=== PATIENT | male | born 1940 | race Two or more races ===

== ENCOUNTER 2020-02-23 19:23 | Inpatient (IN) | payer MEDICARE, MEDICAID ==
[~2020-02-23] VITALS: Ht 149.9 cm; Wt 65.6 kg
--- NOTE | 2020-02-23 21:50 | NUR ---
Direct Admit Note ANDRE AHMADI admitted to Telemetry/MS unit as a direct admit per MD order. Patient oriented to SHONA LIVINGSTON, RN primary RN, unit, room, bed, and unit policies regarding patient care and visiting hours. Patient now on continuous telemetry monitoring, tele box #65 and telemetry reading on arrival to unit is NSR 73. Patient placed on bedside oxygen 2L, weighed by bedscale and encouraged to call if they need something. All questions and concerns addressed, patient verbalized understanding. MD notified of patients arrival and admit orders received.
[2020-02-23 22:30] VITALS: BP 133/69
[2020-02-23] MEDS ORDERED: HEPARIN DRIP/D5W 100UNITS/ML 250 ML IV SCH (22:45)
[2020-02-23] MEDS ORDERED: HYDROcodone-ACET 5/325MG TAB PO PRN (22:45)
[2020-02-23] MEDS ORDERED: HEPARIN SODIUM (PORCINE) 5000 UNITS/ML 1ML VIAL IV ONE (22:45)
[2020-02-23] MEDS ORDERED: ONDANSETRON HCL 4 MG/2 ML VIAL IV PRN (22:45)
[2020-02-23] MEDS ORDERED: DEXTROSE (50%) 50ML SYRG IV PRN (22:45)
[2020-02-23] MEDS ORDERED: SIMV-13 PO (22:55)
[2020-02-23] MEDS ORDERED: LOS25T PO (22:55)
[2020-02-23] MEDS ORDERED: BRIM0.2S17 EACHEYE (22:55)
[2020-02-23] MEDS ORDERED: ATORVASTATIN 20 MG TAB PO SCH (23:00)
[2020-02-23 23:40] VITALS: BP 133/69
[2020-02-23 23:44] LABS: Basophils # (auto) 0.1 10 ^3/uL (0-0.2); Basophils % (auto) 0.7 % (0.0-2.0); Eosinophils # (auto) 0.1 10 ^3/uL (0-0.8); Eosinophils % (auto) 0.5 % (0.0-7.0); Hematocrit 47.3 % (41.0-53.0); Hemoglobin 15.8 g/dL (13.5-17.5); Lymphocytes # (auto) 1.4 10 ^3/uL (0.4-5.4); Lymphocytes % (auto) 14.5 % (10.0-50.0); Mean Corpuscular Hemoglobin 30.5 pg (28.0-32.0); Mean Corpuscular Hgb Conc. 33.4 g/dL (32.0-36.0); Mean Corpuscular Volume 91.3 fL (80.0-100.0); Monocytes # (auto) 0.8 10 ^3/uL (0-1.3); Monocytes % (auto) 8.2 % (0.0-12.0); Neutrophils # (auto) 7.5 10 ^3/uL (1.6-8.6); Neutrophils % (auto) 76.1 % (37.0-80.0); Nucleated Red Blood Cells % 0.1 %; Platelet Count (auto) 196 10^3/uL (140-450); Red Blood Cells 5.18 10^6/uL (4.5-5.90); Red Cell Distribution Width 14.4 % (11.8-14.3); White Blood Cell 9.8 10^3/uL (4.4-10.8)
[2020-02-23 23:45] LABS: INR 0.97 (0.9-1.15); Partial Thromboplastin Time 25.5 sec (23.0-31.2)
[2020-02-23 23:51] LABS: Calcium 8.9 mg/dL (8.5-10.1); Potassium 4.2 mmol/L (3.5-5.1)
[2020-02-23 23:53] LABS: BUN/Creatinine Ratio 9.9
[2020-02-24] MEDS: ASPirin 81 mg TAB PO SCH ×2 (00:36→10:00)
--- NOTE | 2020-02-24 00:45 | NUR ---
Called/paged Dr. Webster called re: Trop 44.9 . Waiting for call back. Pt resting comfortably in bed, reporting no pain. Will continue care.
[2020-02-24 05:00] VITALS: BP 106/62
[2020-02-24] MEDS ORDERED: BRIMONIDINE 0.2% OPTH Soln 5ml EACHEYE SCH (06:00)
[2020-02-24] MEDS: InsuLIN REG 1unit/0.01ml Soln (100units/ml) SC SCH ×3 (06:50→17:00)
[2020-02-24] MEDS: ACCU-CHEK COMFORT CURVE STRIP VI SCH ×3 (06:50→17:00)
--- NOTE | 2020-02-24 07:35 | NUR ---
Opening Note Received report from overnight stocker RN. Patient is awake, alert and oriented x4. No signs or symptoms of distress noted at this time. Patient denies pain or shortness of breath. Reviewed plan of care with patient, patient verbalized understanding. Bed in low and locked position, call light within reach. Will continue to monitor Q1 hour and PRN.
[2020-02-24 09:00] VITALS: BP 103/65
--- NOTE | 2020-02-24 09:05 | NUR ---
Spoke to Dr. Duenas Patient is to be in cleaning laborer for procedure, informed MD that patient is on Heparin drip. states to continue patient on Heparin until he goes down for procedure. Will notify cleaning laborer.
[2020-02-24 09:07] LABS: Basophils # (auto) 0.1 10 ^3/uL (0-0.2); Basophils % (auto) 0.6 % (0.0-2.0); Eosinophils # (auto) 0 10 ^3/uL (0-0.8); Eosinophils % (auto) 0.5 % (0.0-7.0); Hematocrit 47.3 % (41.0-53.0); Hemoglobin 15.3 g/dL (13.5-17.5); Lymphocytes # (auto) 1.7 10 ^3/uL (0.4-5.4); Lymphocytes % (auto) 18.7 % (10.0-50.0); Mean Corpuscular Hemoglobin 29.8 pg (28.0-32.0); Mean Corpuscular Hgb Conc. 32.3 g/dL (32.0-36.0); Mean Corpuscular Volume 92.2 fL (80.0-100.0); Monocytes # (auto) 1.1 10 ^3/uL (0-1.3); Monocytes % (auto) 12.8 % (0.0-12.0); Neutrophils % (auto) 67.4 % (37.0-80.0); Nucleated Red Blood Cells % 0.1 %; Platelet Count (auto) 183 10^3/uL (140-450); Red Blood Cells 5.13 10^6/uL (4.5-5.90); Red Cell Distribution Width 14.3 % (11.8-14.3); White Blood Cell 8.9 10^3/uL (4.4-10.8)
[2020-02-24 09:23] LABS: Partial Thromboplastin Time 39.9 sec (23.0-31.2)
--- NOTE | 2020-02-24 09:31 | NUR ---
Patient taken down to poultry hatchery laborer
[2020-02-24] MEDS ORDERED: LOSARTAN POTASSIUM 25 MG TAB PO SCH (10:00)
[2020-02-24] MEDS ORDERED: HEPARIN SODIUM (PORCINE) 5000 UNITS/ML 1ML VIAL ONE (10:04)
[2020-02-24] MEDS ORDERED: ANGIOMAX 250 MG VIAL IV ONE (10:04)
[2020-02-24] MEDS ORDERED: MIDAZOLAM HCL 1MG/1ML-2 ML VIAL ONE (10:05)
[2020-02-24] MEDS ORDERED: VERAPAMIL 2.5MG/ML INJ 2ML VIAL IV ONE (10:05)
[2020-02-24] MEDS ORDERED: fentaNYL CITRATE 100 MCG/2 ML VL ONE (10:05)
[2020-02-24] MEDS ORDERED: LIDOCAINE 2%HCL (LOCAL ANESTH.) INJ 20ML MDV ONE (10:05)
[2020-02-24] MEDS ORDERED: SODIUM CHL 0.9% 0 ML ONE (10:05)
[2020-02-24] MEDS ORDERED: SODIUM CHL 0.9% 50 ML ONE (10:17)
[2020-02-24] MEDS ORDERED: HEPARIN SODIUM (PORCINE) 5000 UNITS/ML 1ML VIAL IV ONE (11:45)
[2020-02-24] MEDS ORDERED: ENOXAPARIN SOD 80 MG/0.8ML SYRINGE SC SCH (11:52)
[2020-02-24] MEDS ORDERED: HEPARIN DRIP/D5W 100UNITS/ML 250 ML IV SCH (12:00)
--- NOTE | 2020-02-24 12:05 | NUR ---
Patient back from laborer shaft sinking Patient is s/p left heart cath. Patient has vasc band to right wrist, no signs of bleeding or hematoma at this time. Patient denies pain at this time. Reviewed plan of care with patient, patient verbalized understanding. Bed in low and locked position, call light within reach. Will continue to monitor Q1 hour and PRN.
--- NOTE | 2020-02-24 12:27 | NUR ---
1227 02/24/20 - Faxed to [facility] transfer center at [phone] face sheet, order to transfer to [facility] (Dr Geraldo Walsh), labs, meds,consult, [facility] results. Pending review and bed availability. Addendum: 02/24/20 at 1336 by Marisa Shabazz RN 1300 02/24/20 - Contacted [facility] transfer center and [facility] transfer center and was informed currently no bed availability
[2020-02-24 13:00] VITALS: BP 104/54
--- NOTE | 2020-02-24 14:29 | NUR ---
1400 02/23/20 Received a call from [facility] transfer center coordinator Stella who provided assigned bed 229 and report can be called to [phone], accepting physician is Dr Geraldo Walsh. Patient placed on [facility] "will call" list. All imaging to accompany patient. All info stated above provided to nurse Sky.
--- NOTE | 2020-02-24 16:30 | NUR ---
Call to [facility] Scheduled clam picker time for 1829. Patient updated to plan of care. Will continue to monitor Q1 hour and PRN.
--- NOTE | 2020-02-24 16:58 | NUR ---
BEDSIDE SIPRO COMPLETED BY RT. RESULTS AVAILABLE IN HARD CHART. RN MADE AWARE.
[2020-02-24 17:08] VITALS: BP 135/71
--- NOTE | 2020-02-24 18:12 | NUR ---
TRANSFER Patient trasferred to [facility]. Report called to Yolanda DALY , all questions and concerns addressed. This RN called and updated patients daughter Valentino . Patient transferred by [facility] with all personal belongings. keyboard operator removed and sent back to ICU. Patient transferred with IV catheter in place. No signs or symptoms of distress noted at this time.
== END 2020-02-24 18:15 | disposition short-term general hospital (02) | DRG 282 ==
LOC: TELE-WESTW 21:52
PROVIDERS: ADMIT Specialist; ATTEND Specialist
PROC: 4A023N7 Measurement of Cardiac Sampling and Pressure, Left Heart, Percutaneous Approach (ICD-10-PCS; principal; 2020-02-24)
PROC: B2111ZZ Fluoroscopy of Multiple Coronary Arteries using Low Osmolar Contrast (ICD-10-PCS; 2020-02-24)
PROC: B2151ZZ Fluoroscopy of Left Heart using Low Osmolar Contrast (ICD-10-PCS; 2020-02-24)
DX: I21.4 Non-ST elevation (NSTEMI) myocardial infarction (principal); E78.5 Hyperlipidemia, unspecified; I25.10 Atherosclerotic heart disease of native coronary artery without angina pectoris; E11.40 Type 2 diabetes mellitus with diabetic neuropathy, unspecified; Z85.46 Personal history of malignant neoplasm of prostate; Z87.891 Personal history of nicotine dependence; Z79.899 Other long term (current) drug therapy; Z79.82 Long term (current) use of aspirin; Z79.84 Long term (current) use of oral hypoglycemic drugs; Z79.4 Long term (current) use of insulin; Z90.79 Acquired absence of other genital organ(s)
CPT/HCPCS: 36415; 80048; 82962; 84484; 85025; 85610; 85730; 93458; 94010; 99152; G0378; J1642; J1815; J2250

== ENCOUNTER 2025-01-14 15:26 | Inpatient (IN) | payer MEDICARE, MEDICAID ==
[~2025-01-14] VITALS: Ht 149.9 cm; Wt 54.6 kg
[~2025-01-14 15:26] MED LIST: BRIM0.2S17 EACHEYE; LOS25T PO; SIMV40TA18 PO
[2025-01-14 15:42] VITALS: PULSE 63; RESP 12; O2SAT 93
--- NOTE | 2025-01-14 15:54 | ED.PDOC ---
History of Present Illness HPI Comments 84-year-old male brought in by EMS from [facility] [place] presents with a chief complaint of chest pain and NSTEMI. Patient reports that his chest pain began last night around 2100 and thought it was simple indigestion. Patient reports that the sensation never went away which is why he sought out an evaluation at [facility]. Patient was found to have elevated troponin levels at [facility] and was transferred here for higher level of care. Patient states that his pain is localized to his sternal region, nonradiating, describes as indigestion feeling. Chief Complaint: Chest Pain Time Seen by MD: 15:49 Reviewed Notes: Medications, Allergies Allergies: Coded Allergies: No Known Drug Allergy (Verified Allergy, Unknown, 02/23/20) Home Meds Reported Medications Brimonidine Tartrate (Brimonidine Tartrate) 0.2 % Yodit, 1 DROP EACHEYE TID 02/23/20 Simvastatin (Simvastatin) 40 Mg Tab, 1 TAB PO HS 02/23/20 Losartan Potassium (Losartan Potassium) 25 Mg Tab, 1 TAB PO DAILY 02/23/20 Information Source: Patient, Emergency Med Personnel Mode of Arrival: EMS Severity: Moderate Timing: Hours Duration: Since onset Prehospital treatment: None Past Medical History PAST MEDICAL HISTORY: DM, High Lipids, HTN Family History Family History: Reviewed,noncontributory to illness Social History Smoker: Non-Smoker Alcohol: Denies ETOH Use Drugs: Denies Drug Use Lives In: Home Constitutional: denies: chills, diaphoresis, fatigue, fever, malaise, sweats, weakness, others EENTM: denies: blurred vision, double vision, ear bleeding, ear discharge, ear drainage, ear pain, ear ringing, eye pain, eye redness, hearing loss, mouth pain, mouth swelling, nasal discharge, nose bleeding, nose congestion, nose pain, photophobia, tearing, throat pain, throat swelling, voice changes, others Respiratory: denies: cough, hemoptysis, orthopnea, SOB at rest, shortness of breath, SOB with excertion, stridor, wheezing, others Cardiovascular: reports: chest pain; denies: dizzy spells, diaphoresis, Dyspnea on exertion, edema, irregular heart beat, left arm pain, lightheadedness, palpitations, PND, syncope, others Gastrointestinal: denies: abdomen distended, abdominal pain, blood streaked bowels, constipated, diarrhea, dysphagia, difficulty swallowing, hematemesis, melena, nausea, poor appetite, poor fluid intake, rectal bleeding, rectal pain, vomiting, others Genitourinary: denies: burning, dysuria, flank pain, frequency, hematuria, incontinence, penile discharge, penile sore, pain, testicle pain, testicle swelling, urgency, others Neurological: denies: dizziness, fainting, headache, left sided numbness, left sided weakness, numbness, paresthesia, pre-existing deficit, right sided numbness, right sided weakness, seizure, speech problems, tingling, tremors, wea kness, others Musculoskeletal: denies: back pain, gout, joint pain, joint swelling, muscle pain, muscle stiffness, neck pain, others Integumetry: denies: bruises, change in color, change in hair/nails, dryness, l aceration, lesions, lumps, rash, wounds, others Allergic/Immunocompromised: denies: Difficulty Healing, Frequent Infections, Hives, Itching, others Hematologic/Lymphatic: denies: anemia, blood clots, easy bleeding, easy bruising, swollen glands, others Endocrine: denies: excessive hunger, excessive sweating, excessive thirst, excessive urination, flushing, intolerance to cold, intolerance to heat, unexplained weight gain, unexplained weight loss, others Psychiatric: denies: anxiety, bipolar disorder, depression, hopeless, panic disorder, schizophrenia, sleepless, suicidal, others All Other Systems: Reviewed and Negative Physical Exam General Appearance: No Apparent Distress, Normal HEENT: Normal ENT Inspection, Pharynx Normal, TMs Normal Neck: Full Range of Motion, Non-Tender, Normal, Normal Inspection Respiratory: Chest Non-Tender, Lungs Clear, No Accessory Muscle Use, No Respiratory Distress, Normal Breath Sounds Cardiovascular: No Edema, No JVD, No Murmur, No Gallop, Normal Peripheral Pulses, Regular Rate/Rhythm Breast Exam: Deferred Gastrointestinal: No Organomegaly, Non Tender, No Pulsatile Mass, Normal Bowel Sounds, Soft Genitalia: Deferred Pelvic: Deferred Rectal: Deferred Extremities: No calf tenderness, Normal capillary refill, Normal inspection, Normal range of motion, Non-tender, No pedal edema Musculoskeletal : Apperance: Normal Neurologic: Alert, top lift compressor II-XII nml as Tested, No Motor Deficits, Normal Affect, Normal Mood, No Sensory Deficits Cerebellar Function: Normal Reflexes: Normal Skin: Dry, Normal Color, Warm Lymphatic: No Adenopathy Was a procedure done? Was a procedure done?: No EKG EKG : Pulse Rate (adult): 58 [place]: Normal Cardiac Rhythm: SB Block: RBBB Hypertrophy: LVH ST: Normal Differential Dx Considerations may include: Differential diagnosis including NSTEMI, STEMI, CHF, PE, chest wall pain, GERD symptoms, aortic dissection, pneumothorax, pneumonia. Patient does have a cardiac history and his troponin is elevated without EKG changes patient has NSTEMI he will be admitted to ICU cardiology will be consulted Due to concerns for patients condition deteriorating, the care required my highest level of attention and readiness to intervene. I assessed the patient, reviewed the medical records, ordered the appropriate tests and treatments, then reassessed for results and responsiveness. I communicated with medical personnel and consultants and formulated a plan of care. Total critical care time excludes any procedures X-Ray, Labs, Meds, VS Vital Signs Date Time Temp Pulse Resp B/P (MAP) Pulse Ox O2 Delivery O2 Flow Rate FiO2 01/14/25 16:35 57 01/14/25 15:54 58 01/14/25 15:45 58 01/14/25 15:42 63 12 93 Nasal Cannula* 2 28 01/14/25 15:42 63 12 93/45 (61) 93 01/14/25 15:26 98.7 62 16 103/49 96 98.7 Lab Test 01/14/25 16:54 01/14/25 15:50 Range/Units Sodium Level 138 136-145 mmol/L Potassium Level 4.4 3.5-5.1 mmol/L Chloride Level 104 98-107 mmol/L Carbon Dioxide Level 25 20-31 mmol/L Anion Gap 9 5-15 Blood Urea Nitrogen 13 9-23 mg/dL Creatinine 1.58 H 0.700-1.30 mg/dL Glomerular Filtration Rate Calc 42 >90 mL/min BUN/Creatinine Ratio 8.2 L 10.0-20.0 Serum Glucose 103 74-106 mg/dL Calcium Level 9.1 8.7-10.4 mg/dL Troponin I High Sensitivity 38569 *H 44933 *H </=54 ng/L White Blood Count 10.6 4.4-10.8 10^3/uL Red Blood Count 4.90 4.5-5.90 10^6/uL Hemoglobin 14.9 13.5-17.5 g/dL Hematocrit 44.7 41.0-53.0 % Mean Corpuscular Volume 91.4 80.0-100.0 fL Mean Corpuscular Hemoglobin 30.4 28.0-32.0 pg Mean Corpuscular Hemoglobin Concent 33.3 32.0-36.0 g/dL Red Cell Distribution Width 15.2 H 11.8-14.3 % Platelet Count 199 140-450 10^3/uL Mean Platelet Volume 10.9 H 6.9-10.8 fL Neutrophils (%) (Auto) 72.5 37.0-80.0 % Lymphocytes (%) (Auto) 16.1 10.0-50.0 % Monocytes (%) (Auto) 10.9 0.0-12.0 % Eosinophils (%) (Auto) 0.1 0.0-7.0 % Basophils (%) (Auto) 0.4 0.0-2.0 % Neutrophils # (Auto) 7.7 1.6-8.6 10 ^3/uL Lymphocytes # (Auto) 1.7 0.4-5.4 10 ^3/uL Monocytes # (Auto) 1.2 0-1.3 10 ^3/uL Eosinophils # (Auto) 0 0-0.8 10 ^3/uL Basophils # (Auto) 0 0-0.2 10 ^3/uL Nucleated Red Blood Cells 0.1 % Time of 1ST Reevaluation: 16:20 Reevaluation 1ST: Unchanged Patient Education/Counseling: Diagnosis, Treatment, Need For Follow Up Family Education/Counseling: No Family Present SEPSIS Sepsis Screen Date sepsis recognized/suspect: Jan 14, 2025 Time Sepsis recognized/suspect: 1526 Recent Procedure: No On Antibiotic Therapy: No Respiratory Rate >20: No Heart Rate >90: No Temp<36 C (96.8 F) or >38.3 C: No SBP <90 or MAP <65 mmHG: No New Acute Mental Status Change: No Is the patient on CPAP, BIPAP,: No Physician Orders Electrocardigram (01/14/25 15:31) Troponin-I Hs (01/14/25 18:31) Electrocardigram (01/14/25 16:31) Chest Xray 1 View (01/14/25 15:48) Continuous Ekg Monitoring 08,12,16,20,00,04 (01/14/25 15:48) Platelet Monitoring (01/14/25 17:06) Heparin Per Standardized Proce (01/14/25 17:06) Discontinue All Im Injections (01/14/25 17:06) Heparin Drip/D5w 100units/Ml (01/14/25 17:15) PTPTT (01/14/25 18:05) Vital Signs Date Time Temp Pulse Resp B/P (MAP) Pulse Ox O2 Delivery O2 Flow Rate FiO2 01/14/25 16:35 57 01/14/25 15:54 58 01/14/25 15:45 58 01/14/25 15:42 63 12 93 Nasal Cannula* 2 28 01/14/25 15:42 63 12 93/45 (61) 93 01/14/25 15:26 98.7 62 16 103/49 96 98.7 Laboratory Tests Test 01/14/25 15:50 White Blood Count 10.6 10^3/uL (4.4-10.8) Departure 1 Departure Time of Disposition: 18:10 Impression: Primary Impression: ACS (acute coronary syndrome) Additional Impression: Renal insufficiency Disposition: ADMITTED INPATIENT Admit to: ICU Condition: Critical Discharged With: Self Critical Care Note Critical Care Time?: Yes (45 min-critical care time only) Critical care comment: Due to concerns for patients condition deteriorating, the care required my highest level of attention and readiness to intervene. I assessed the patient, reviewed the medical records, ordered the appropriate tests and treatments, then reassessed for results and responsiveness. I communicated with medical personnel and consultants and formulated a plan of care. Total critical care time excludes any procedures Stability Stability form required: No Heart Score Heart Score: Heart Score Response (Comments) Value History Highly Suspicious 2 EKG Repolarization Disturb 1 Age >65 2 Risk Factors >3 or Hx ASHD 2 Troponin >3 x's Normal limit 2 Total 9 I personally scribed for SUMI HOUSE MD ([email or web address]) on 01/14/25 at 15:54. Electronically submitted by Lars Salazar [email or web address]). SUMI HOUSE MD Jan 14, 2025 15:54
--- NOTE | 2025-01-14 16:28 | DVH ---
CHEST RADIOGRAPH Indication: cp Technique: Single frontal view of the chest was obtained Comparison: None FINDINGS: Lines and Tubes: None Lungs: No focal consolidation. Pleura: No effusion. No pneumothorax. Cardiomediastinal contours: Unremarkable Postsurgical changes of Midline sternotomy surgical clips are noted consistent with prior history of CABG. Bones: No acute osseous abnormality. IMPRESSION: No acute cardiopulmonary disease.
[2025-01-14 16:53] LABS: Hematocrit 44.7 % (41.0-53.0); Hemoglobin 14.9 g/dL (13.5-17.5); Mean Corpuscular Hemoglobin 30.4 pg (28.0-32.0); Mean Corpuscular Volume 91.4 fL (80.0-100.0); Nucleated Red Blood Cells % 0.1 %
[2025-01-14 17:37] LABS: Chloride 104 mmol/L (98-107); Potassium 4.4 mmol/L (3.5-5.1); Sodium 138 mmol/L (136-145)
[2025-01-14 17:38] LABS: Anion Gap 9 (5-15); Calcium 9.1 mg/dL (8.7-10.4); Carbon Dioxide 25 mmol/L (20-31)
[2025-01-14 17:43] LABS: BUN/Creatinine Ratio 8.2 (10.0-20.0); Blood Urea Nitrogen 13 mg/dL (9-23); Glucose 103 mg/dL (74-106)
--- NOTE | 2025-01-14 18:35 | ECG ---
[facility] Test Date: 2025-01-14 Test Time: 15:40:06 Pat Name: ANDRE AHMADI Department: [facility] ED Patient ID: [id number] Room: [address] [place] [address] Gender: M Bar Staff: ALIA : 1940 Requested By: SUMI HOUSE Order Number: [id number] Reading MD: Saleem Maya Measurements Intervals [place] Rate: 58 P: 73 FL: 182 QRS: 107 QRSD: 153 T: 263 QT: 412 QTc: 405 Interpretive Statements Sinus rhythm RBBB and LPFB Baseline wander in lead(s) V3,V4,V5,V6 Electronically Signed On 01-14-2025 22:36:24 PDT by Saleem Maya Please click the below link to view image of tracing.
--- NOTE | 2025-01-14 18:35 | ECG ---
[facility] Test Date: 2025-01-14 Test Time: 16:33:09 Pat Name: ANDRE AHMADI Department: [facility] ED Patient ID: [facility]-[id number] Room: [address] [place] [address] Gender: M Furniture Finisher: ALIA : 1940 Requested By: SUMI HOUSE Order Number: [id number] Reading MD: Saleem Maya Measurements Intervals [place] Rate: 57 P: 59 [place]: 184 QRS: 133 QRSD: 149 T: 253 QT: 428 QTc: 417 Interpretive Statements Sinus rhythm Atrial premature complex RBBB and LPFB Electronically Signed On 01-14-2025 22:37:21 PDT by Saleem Maya Please click the below link to view image of tracing.
[2025-01-14 18:41] LABS: INR 1.05 (0.9-1.15); Partial Thromboplastin Time 45.7 SEC (24.5-34.5); Prothrombin Time 11.1 sec (9.3-11.8)
--- NOTE | 2025-01-14 18:59 | DVHHP2 ---
Admitting Diagnosis: chest pain History of Present Illness 84 year old male brought in from [facility] is brought in for chest pain and NSTEMI. Patient states chest pain started at 2100. He was found to have elevated troponin levels at [facility] and was transferred for higher level of care. While in the emergency department the patient was evaluated by the provider. Patient will be admitted for further evaluation and treatment. I discussed admission with the patient/family and is in agreement to treatment plan. Allergies: Coded Allergies: No Known Drug Allergy (Verified Allergy, Unknown, 02/23/20) Home Meds Reported Medications Albuterol Sulfate (Albuterol Sulfate Hfa) Unknown Strength Aer, 80 MCG IN PRN for SOB, AER 01/15/25 Empagliflozin (Jardiance) 10 Mg Tab, 1 TAB PO DAILY 01/15/25 Furosemide (Furosemide) 20 Mg Tab, TAB PO 01/15/25 Latanoprost (LATANOPROST) 0.005 % Yodit, EACHEYE 01/15/25 Sacubitril-Valsartan (Entresto 24-26 mg) 1 Tab Tab, 1 TAB PO BID 01/15/25 Aspirin (Aspirin) 81 Mg Chw, 1 TAB PO DAILY 01/15/25 Carvedilol (Carvedilol) 3.125 Mg Tab, 1 TAB PO BID 01/15/25 Atorvastatin Calcium (ATORVASTATIN CALCIUM) 80 Mg Tab, 1 TAB PO DAILY 01/15/25 Brimonidine Tartrate (Brimonidine Tartrate) 0.2 % Yodit, 1 DROP EACHEYE TID 02/23/20 Simvastatin (Simvastatin) 40 Mg Tab, 1 TAB PO HS 02/23/20 Losartan Potassium (Losartan Potassium) 25 Mg Tab, 1 TAB PO DAILY 02/23/20 Discontinued Reported Medications Albuterol Sulfate (Albuterol Sulfate) 2 Mg Tab, 90 MCG INH PRN for SHORTNESS OF BREATH, MG 01/15/25 Current Medications Current Medications Medications (Trade) Dose Ordered Sig/Liberty Route PRN Reason Start Time Stop Time Status Last Admin Aspirin 81 mg DAILY PO 01/15/25 10:00 01/15/25 10:23 Brimonidine Tartrate (ALPHAGAN 0.2% OPTH Soln) 1 drop BID EACHEYE 01/15/25 14:00 01/15/25 20:24 Carvedilol (Coreg Tablet) 3.125 mg BID PO 01/16/25 10:00 Empaglifozin (Jardiance) 10 mg DAILY PO 01/16/25 10:00 Latanoprost (Xalatan) 1 drop DAILY EACHEYE 01/15/25 10:00 01/15/25 11:38 Sacubitril/ Valsartan (Entresto 24-26 Mg tab) 1 tab BID PO 01/16/25 10:00 Diagnostic Test (Pha) (Accu-Chek Comfort Curve T) 1 strip ACHS 01/15/25 11:30 01/15/25 20:24 Insulin Human Regular (InsuLIN R) ACHS SC 01/15/25 11:30 Dextrose 50 ml UD PRN IV Blood Sugar LESS THAN 60 01/15/25 09:45 Heparin Sodium/ Dextrose 250 ml @ 5 mls/hr Q24H IV 01/15/25 13:45 01/15/25 15:14 DC Clopidogrel Bisulfate (Plavix) 75 mg DAILY PO 01/16/25 10:00 Review of Systems chest pain Vital Signs Vital Signs Date Time Temp Pulse Resp B/P (MAP) Pulse Ox O2 Delivery O2 Flow Rate FiO2 01/15/25 20:00 73 29 115/37 (63) 100 01/15/25 18:30 98.4 98.4 01/15/25 18:00 Nasal Cannula* 2 28 Physical Exam General Appearance: alert, no distress HEENT: EOMI, PERRLA, normal external inspect of ears, no icterus, no nasal drainage Neck: no carotid bruit, no jugular venous distention (JVD), no lymphadenopathy Chest: normal thorax Respiratory: clear to auscultation, normal air movement Cardiovascular: regular rate and rhythm, no diastolic murmur, no jugular venous distention (JVD), no rub, no systolic murmur Abdominal: soft, no hepatomegaly, no mass, no splenomegaly, no tenderness Musculoskeletal: no joint tenderness, no swelling Extremities: normal pulses, no calf tenderness, no clubbing, no cyanosis, no edema Skin: no bruising, no jaundice, no rash Neurological: alert, No focal deficit SEPSIS Sepsis Screen Date sepsis recognized/suspect: Jan 14, 2025 Time Sepsis recognized/suspect: 1525 Recent Procedure: No On Antibiotic Therapy: No Respiratory Rate >20: No Heart Rate >90: No Temp<36 C (96.8 F) or >38.3 C: No SBP <90 or MAP <65 mmHG: No New Acute Mental Status Change: No Is the patient on CPAP, BIPAP,: No Physician Orders Electrocardigram (01/14/25 15:31) Electrocardigram (01/14/25 16:31) Chest Xray 1 View (01/14/25 15:48) Platelet Monitoring (01/14/25 17:06) Discontinue All Im Injections (01/14/25 17:06) * Cardiology Consult (01/14/25 18:13) Admit (01/14/25 18:52) Code Status (01/14/25 18:52) Sodium Chloride 0.9% (01/14/25 19:00) Oxygen Per Hour (01/14/25 18:52) Hydrocodone-Acet 5/325mg Tab ([place] 5/32 (01/14/25 19:00) Temazepam (Restoril) (01/14/25 19:00) Ondansetron Hcl (Zofran) (01/14/25 19:00) Condition: Critical (01/14/25 18:52) Morphine Sulfate Injection (01/14/25 19:00) Sequential Compression Device (01/14/25 ) Nitroglycerin Sublingual (Ntrostat Subli (01/14/25 19:00) Morphine Sulfate Injection (01/14/25 19:00) Stat Ekg For Chest Pain (01/14/25 18:52) Notify Md Of Changes From Base (01/14/25 18:52) Optical Effects Camera Operator For 24 Hours (01/14/25 18:52) Emergency Dysrhythmia Protocol (01/14/25 18:52) Rhythm Strips Once Every Shift (01/14/25 18:52) Oxygen By Nasal Cannula (01/14/25 18:52) *Consult Dr. Webster (01/14/25 18:54) *Consult Dr. Madison (01/14/25 18:54) Pantoprazole (Protonix) (01/14/25 19:00) Atorvastatin (Lipitor) (01/14/25 19:00) Heparin Per Standardized Proce (01/15/25 02:53) Aspirin Tablet (01/15/25 10:00) Cl Left Heart Cath (01/15/25 07:43) Complete Blood Count (01/16/25 05:00) Heparin Per Pharmacy Protocol (01/15/25 08:41) Brimonidine 0.2% Opth Soln (Alphagan 0.2 (01/15/25 14:00) Carvedilol Tablet (Coreg Tablet) (01/16/25 10:00) Empagliflozin (Jardiance) (01/16/25 10:00) Latanoprost (Xalatan) (01/15/25 10:00) Sacubitril-Valsartan (Entresto 24-26 Mg (01/16/25 10:00) Glucose Blood (Accu-Chek Comfort Curve T (01/15/25 11:30) Insulin R (Human) (Insulin R) (01/15/25 11:30) Dextrose 50% Syringe (01/15/25 09:45) Heparin Per Pharmacy Protocol (01/15/25 13:21) Post Cath Vital Signs Q 15min (01/15/25 15:12) Post Cath Activity Protocol (01/15/25 15:12) Clopidogrel Bisulfate (Plavix) (01/16/25 10:00) Cardiac Diet-2gna,Lofat,Lochol (01/15/25 Dinner) Sodium Chloride 0.9% (01/15/25 21:00) Vital Signs Date Time Temp Pulse Resp B/P (MAP) Pulse Ox O2 Delivery O2 Flow Rate FiO2 01/15/25 20:00 73 29 115/37 (63) 100 01/15/25 19:30 76 17 108/34 (58) 100 01/15/25 19:00 67 22 83/30 (47) 100 01/15/25 18:30 98.4 90 18 96/42 (60) 100 98.4 01/15/25 18:00 70 22 83/48 (60) 98 01/15/25 18:00 83 01/15/25 18:00 22 98 Nasal Cannula* 2 28 01/15/25 17:31 74 22 87/45 (59) 100 01/15/25 17:00 82 22 113/50 (71) 100 01/15/25 16:30 88 36 128/66 (86) 97 01/15/25 16:00 25 100 Nasal Cannula* 2 28 01/15/25 16:00 83 25 134/75 (94) 100 01/15/25 16:00 82 01/15/25 15:30 74 100 01/15/25 14:01 79 25 89/35 (53) 100 01/15/25 14:00 25 100 Nasal Cannula* 2 28 01/15/25 14:00 79 01/15/25 13:30 68 26 100 01/15/25 13:00 71 30 89/42 (58) 100 01/15/25 12:30 73 22 98/36 (56) 100 01/15/25 12:00 99.1 71 23 91/27 (48) 100 99.1 01/15/25 12:00 80 01/15/25 11:45 23 100 Nasal Cannula* 2 28 01/15/25 11:30 70 24 94/37 (56) 100 01/15/25 11:00 82 19 98/29 (52) 100 01/15/25 10:31 76 22 76/37 (50) 88 01/15/25 10:01 72 22 97/33 (54) 100 01/15/25 10:00 72 01/15/25 10:00 22 100 Nasal Cannula* 2 28 01/15/25 09:31 77 20 97/39 (58) 100 01/15/25 09:30 78 22 95/35 (55) 100 01/15/25 09:00 77 16 97/32 (53) 100 01/15/25 08:31 68 26 90/39 (56) 100 01/15/25 08:00 64 20 100 Nasal Cannula* 2 28 01/15/25 08:00 20 100 Nasal Cannula* 2 28 01/15/25 08:00 98.1 64 20 100/30 (53) 100 98.1 01/15/25 08:00 74 01/15/25 07:30 73 15 99 01/15/25 07:00 77 24 99/35 (56) 98 01/15/25 06:00 28 98 Nasal Cannula* 2 28 01/15/25 06:00 75 01/15/25 04:00 70 01/15/25 04:00 26 98 Nasal Cannula* 2 28 01/15/25 02:16 69 26 102/32 (55) 98 01/15/25 02:00 28 95 Nasal Cannula* 2 28 01/15/25 02:00 71 01/15/25 02:00 74 26 102/32 (55) 98 01/15/25 01:30 67 27 86/31 (49) 99 01/15/25 01:00 70 19 92/32 (52) 99 01/15/25 00:30 69 26 100/32 (54) 97 01/15/25 00:00 98.9 69 26 96/41 (59) 98.9 01/15/25 00:00 28 95 Nasal Cannula* 2 28 01/14/25 23:30 62 34 104/58 (73) 100 01/14/25 22:30 65 18 95 Nasal Cannula* 2 28 01/14/25 22:00 74 22 113/59 (77) 99 01/14/25 21:00 68 22 103/55 (71) 99 01/14/25 20:00 70 01/14/25 20:00 69 27 115/60 (78) 99 01/14/25 18:31 65 27 101/40 (60) 98 01/14/25 18:00 70 10 110/50 (70) 96 01/14/25 17:31 71 21 126/46 (72) 100 01/14/25 16:35 57 01/14/25 15:54 58 01/14/25 15:45 58 01/14/25 15:42 63 12 93 Nasal Cannula* 2 28 01/14/25 15:42 63 12 93/45 (61) 93 01/14/25 15:26 98.7 62 16 103/49 96 98.7 Laboratory Tests Test 01/14/25 15:50 01/15/25 04:50 White Blood Count 10.6 10^3/uL (4.4-10.8) 17.2 10^3/uL (4.4-10.8) #H Medications Medications Dose Ordered Sig/Liberty Route Start Time Stop Time Status Last Admin Dose Admin Aspirin 81 mg DAILY PO 01/15/25 10:00 01/15/25 10:23 Brimonidine Tartrate 1 drop BID EACHEYE 01/15/25 14:00 01/15/25 20:24 Clopidogrel Bisulfate 300 mg ONCE ONCE PO 01/15/25 15:30 01/15/25 15:43 DC 01/15/25 16:22 Diagnostic Test (Pha) 1 strip ACHS 01/15/25 11:30 01/15/25 20:24 Fentanyl Citrate 100 mcg STK-MED ONCE .ROUTE 01/15/25 14:37 01/15/25 14:34 DC 01/15/25 14:37 Iodixanol 64,000 mg STK-MED ONCE IV 01/15/25 12:34 01/15/25 12:31 DC 01/15/25 12:34 Latanoprost 1 drop DAILY EACHEYE 01/15/25 10:00 01/15/25 11:38 Midazolam HCl 2 mg STK-MED ONCE .ROUTE 01/15/25 14:37 01/15/25 14:34 DC 01/15/25 14:37 Sodium Chloride 500 ml @ 500 mls/hr Q1H ONCE IV 01/15/25 21:00 01/15/25 21:59 01/15/25 21:03 Results Labs Test 01/15/25 20:28 01/15/25 19:13 01/15/25 04:50 01/14/25 19:02 Range/Units POC Glucose 111 H 70-106 mg/dl Prothrombin Time 11.9 H 9.3-11.8 sec Prothrombin Time INR 1.14 0.9-1.15 Activated Partial Thromboplast Time 34.7 H 24.5-34.5 SEC White Blood Count 17.2 #H 4.4-10.8 10^3/uL Red Blood Count 4.77 4.5-5.90 10^6/uL Hemoglobin 14.4 13.5-17.5 g/dL Hematocrit 44.5 41.0-53.0 % Mean Corpuscular Volume 93.4 80.0-100.0 fL Mean Corpuscular Hemoglobin 30.2 28.0-32.0 pg Mean Corpuscular Hemoglobin Concent 32.4 32.0-36.0 g/dL Red Cell Distribution Width 15.6 H 11.8-14.3 % Platelet Count 146 140-450 10^3/uL Mean Platelet Volume 10.0 6.9-10.8 fL Neutrophils (%) (Auto) 80.1 H 37.0-80.0 % Lymphocytes (%) (Auto) 8.5 L 10.0-50.0 % Monocytes (%) (Auto) 10.7 0.0-12.0 % Eosinophils (%) (Auto) 0.1 0.0-7.0 % Basophils (%) (Auto) 0.6 0.0-2.0 % Neutrophils # (Auto) 13.8 H 1.6-8.6 10 ^3/uL Lymphocytes # (Auto) 1.5 0.4-5.4 10 ^3/uL Monocytes # (Auto) 1.8 H 0-1.3 10 ^3/uL Eosinophils # (Auto) 0 0-0.8 10 ^3/uL Basophils # (Auto) 0.1 0-0.2 10 ^3/uL Nucleated Red Blood Cells 0.0 % Sodium Level 141 136-145 mmol/L Potassium Level 4.3 3.5-5.1 mmol/L Chloride Level 108 H 98-107 mmol/L Carbon Dioxide Level 25 20-31 mmol/L Anion Gap 8 5-15 Blood Urea Nitrogen 13 9-23 mg/dL Creatinine 1.50 H 0.700-1.30 mg/dL Glomerular Filtration Rate Calc 45 >90 mL/min BUN/Creatinine Ratio 8.7 L 10.0-20.0 Serum Glucose 86 74-106 mg/dL Calcium Level 8.3 L 8.7-10.4 mg/dL Phosphorus Level 4.0 2.4-5.1 mg/dL Magnesium Level 1.8 1.6-2.6 mg/dL Total Bilirubin 1.3 H 0.2-1.0 mg/dL Aspartate Amino Transferase (AST) 124 H 13-40 U/L Alanine Aminotransferase (ALT) 16 7-40 U/L Alkaline Phosphatase 51 46-116 U/L B-Type Natriuretic Peptide 627.18 0-100 pg/mL Total Protein 6.0 5.7-8.2 g/dL Albumin 3.5 3.2-4.8 g/dL Triglycerides Level 55 < 150 mg/dL Cholesterol Level 102 < 200 mg/dL LDL Cholesterol 43 < 100 mg/dL HDL Cholesterol 47 40-59 mg/dL Troponin I High Sensitivity 08480 *H </=54 ng/L Microbiology Date/Time Source Procedure Growth Status 01/14/25 23:26 Nose MRSA Screen - Final Complete Admitting Diagnosis: - NSTEMI Cardiology consult, heparin drip, monitor EKG -Hyperlipidemia Medication, monitoring -DM type II with hyperglycemia Diet, insulin sliding scale, monitoring -CKD IIIb Medications, monitoring Plan discussed with: Patient, Other JIGAR RAMIREZ BORDER POLICE Jan 14, 2025 18:59
[2025-01-14] MEDS ORDERED: ONDANSETRON HCL 4 MG/2 ML VIAL IV PRN (19:00)
[2025-01-14] MEDS ORDERED: TEMAZEPAM 15 MG CAP PO PRN (19:00)
[2025-01-14] MEDS ORDERED: HYDROcodone-ACET 5/325MG TAB PO PRN (19:00)
[2025-01-14] MEDS ORDERED: NITROGLYCERIN 0.4 MG SL TAB SL PRN (19:00)
[2025-01-14] MEDS ORDERED: MORPHINE SULFATE INJ 2 MG/ml SYRG IV PRN ×2 (19:00)
[2025-01-14] MEDS: HEPARIN DRIP/D5W 100UNITS/ML 250 ML IV SCH (19:07)
[2025-01-14] MEDS: PANTOPRAZOLE 40 MG/10 ML VIAL INJ IV SCH (20:27)
[2025-01-14] MEDS: ATORVASTATIN 20 MG TAB PO SCH (20:29)
[2025-01-14] MEDS: SODIUM CHLORIDE 0.9% 1,000 ML IV SCH (20:34)
[2025-01-14 22:30] VITALS: PULSE 65; RESP 18; O2SAT 95
[2025-01-14 23:30] VITALS: BP 104/58; PULSE 62; RESP 34; O2SAT 100
[2025-01-15] VITALS (44 sets, daily range): BP systolic 76–134; BP diastolic 27–75; PULSE 64–90; RESP 15–36; TEMP 98.1–99.1; O2SAT 88–100
[2025-01-15 02:44] LABS: INR 1.06 (0.9-1.15); Partial Thromboplastin Time 53.2 SEC (24.5-34.5); Prothrombin Time 11.2 sec (9.3-11.8)
[2025-01-15 05:08] LABS: Hematocrit 44.5 % (41.0-53.0); Hemoglobin 14.4 g/dL (13.5-17.5); Mean Corpuscular Hemoglobin 30.2 pg (28.0-32.0); Mean Corpuscular Volume 93.4 fL (80.0-100.0); Nucleated Red Blood Cells % 0.0 %
[2025-01-15 05:24] LABS: Alanine Aminotransferase 16 U/L (7-40); Albumin 3.5 g/dL (3.2-4.8); Alkaline Phosphatase 51 U/L (46-116); Anion Gap 8 (5-15); BUN/Creatinine Ratio 8.7 (10.0-20.0); Blood Urea Nitrogen 13 mg/dL (9-23); Carbon Dioxide 25 mmol/L (20-31); Glucose 86 mg/dL (74-106); Potassium 4.3 mmol/L (3.5-5.1); Sodium 141 mmol/L (136-145); Total Protein 6.0 g/dL (5.7-8.2)
[2025-01-15 05:26] LABS: Bilirubin, Total 1.3 mg/dL (0.2-1.0); Calcium 8.3 mg/dL (8.7-10.4); Chloride 108 mmol/L (98-107)
[2025-01-15 06:20] LABS: Magnesium 1.8 mg/dL (1.6-2.6)
--- NOTE | 2025-01-15 07:17 | DVHINCON2 ---
Date of service: Jan 15, 2025 Referring Physician Jigar Ramirez NP Reason for Consultation NSTEMI, Second Opinion History of Present Illness This is an 84-year old male who initially presented 01/14/2025 as NTEMI transfer from [facility] to undergo ischemic workup by cardiac catheterization. Upon arrival at present facility initial 12-lead electrocardiogram had revealed sinus rhythm at 58bpm, RBBB, with no evidence for ST segment elevation. [place] [address], [place] [address], and [address] which the patient had subsequently initiated on Heparin infusion, statin, and aspirin therapy. LDL was found optimized at 43. Initial proBNP level had been found elevated at 627.18 which subsequent chest imaging had revealed no evidence for acute cardiopulmonary abnormalities. Throughout course of present admission patient underwent subsequent evaluation by interventional cardiology services which he underwent cardiac catheterization 01/15/2025 revealing INFORMATION TECHNOLOGY TECHNICIAN involving all [place] coronary arteries, patent SVG to LCX, touchdown lesion involving MURDOCK to LAD, failed SVG to rPDA with recommendation to pursue aggressive risk factor modification and medical management of LAD given patients advanced age and underlying comorbidities. At present denies any active chest pain, shortness of breath, palpitations, dizziness, syncope, orthopnea, paroxysmal nocturnal dyspnea, or any further cardiac related symptoms. Electrophysiology services were involved by primary team request for EP aspects of care Past medical history includes coronary artery disease status post previous 3-V CABG (03/07/2020), chronic diastolic heart failure, hypertension, hyperlipidemia, and GERD Cardiac Catheterization: (01/15/2025) FINDINGS: RCA: Moderate vessel off the right sinus of Valsalva, there is mid RCA INFORMATION TECHNOLOGY TECHNICIAN. LEFT MAIN: Moderate size left main, it bifurcates into LAD and circumflex. 70% distal LM stenosis. CIRCUMFLEX: Moderate caliber vessel coming off the left main .mid CX is INFORMATION TECHNOLOGY TECHNICIAN. LAD: LAD is a moderate caliber vessel coming of the left main. mid LAD is INFORMATION TECHNOLOGY TECHNICIAN. SVG to RPDA: atretic non functional 99% stenosised and diseased SVG to CX/ OM : patent MURDOCK to LAD: 95% touchdown lesion in LAD. CONCLUSIONS: 1. all [place] vessel INFORMATION TECHNOLOGY TECHNICIAN. 2. patent SVG to CX. 3. MURDOCK to LAD touchdown lesion. 4. failed SVG to rPDA. PLAN: Aggressive risk factor modification and medical management for the patient. DA PT. cont HF meds. anti anginal therapy. LAD PCI would be immensely risky given age and comorbidities Past Medical History Reviewed Past Surgical History Reviewed Allergies: Coded Allergies: No Known Drug Allergy (Verified Allergy, Unknown, 02/23/20) Home Meds Active Scripts Famotidine (PEPCID TABLET) 20 Mg Tb, 1 TAB PO BID, #60 TAB 5 Refills Prov:JIGAR RAMIREZ aMriana MERCHANDISING COORDINATOR 01/16/25 Clopidogrel Bisulfate (CLOPIDOGREL) 75 Mg Tab, 75 MG PO DAILY for 30 Days, #30 TAB Prov:JIGAR RAMIREZ MERCHANDISING COORDINATOR 01/16/25 Reported Medications Albuterol Sulfate (Albuterol Sulfate Hfa) Unknown Strength Aer, 80 MCG IN PRN for SOB, AER 01/15/25 Empagliflozin (Jardiance) 10 Mg Tab, 1 TAB PO DAILY 01/15/25 Furosemide (Furosemide) 20 Mg Tab, TAB PO 01/15/25 Latanoprost (LATANOPROST) 0.005 % Yodit, EACHEYE 01/15/25 Sacubitril-Valsartan (Entresto 24-26 mg) 1 Tab Tab, 1 TAB PO BID 01/15/25 Aspirin (Aspirin) 81 Mg Chw, 1 TAB PO DAILY 01/15/25 Carvedilol (Carvedilol) 3.125 Mg Tab, 1 TAB PO BID 01/15/25 Atorvastatin Calcium (ATORVASTATIN CALCIUM) 80 Mg Tab, 1 TAB PO DAILY 01/15/25 Brimonidine Tartrate (Brimonidine Tartrate) 0.2 % Yodit, 1 DROP EACHEYE TID 02/23/20 Simvastatin (Simvastatin) 40 Mg Tab, 1 TAB PO HS 02/23/20 Losartan Potassium (Losartan Potassium) 25 Mg Tab, 1 TAB PO DAILY 02/23/20 Discontinued Reported Medications Albuterol Sulfate (Albuterol Sulfate) 2 Mg Tab, 90 MCG INH PRN for SHORTNESS OF BREATH, MG 01/15/25 Current Medications Current Medications Medications (Trade) Dose Ordered Sig/Liberty Route PRN Reason Start Time Stop Time Status Last Admin Heparin Sodium/ Dextrose 250 ml @ 7 mls/hr Q24H IV 01/14/25 17:15 01/14/25 19:07 Sodium Chloride 1,000 ml @ 60 mls/hr [id number] IV 01/14/25 19:00 01/14/25 20:34 Acetaminophen/ Hydrocodone Bitart ([place] 5/325MG Tab) 1 tab Q4HP PRN PO MODERATE PAIN (4-6 PAIN SCALE) 01/14/25 19:00 Temazepam (Restoril) 15 mg QHSP PRN PO FOR INSOMNIA 01/14/25 19:00 Ondansetron HCl (Zofran) 4 mg Q4HP PRN IV NAUSEA / VOMITING 01/14/25 19:00 Morphine Sulfate 2 mg Q4HPRN PRN IV SEVERE PAIN (7-10 PAIN SCALE) 01/14/25 19:00 Nitroglycerin (Ntrostat Sublingual) 0.4 mg Q5MINP PRN SL FOR CHEST PAIN 01/14/25 19:00 Morphine Sulfate 2 mg Q30M PRN IV FOR CHEST PAIN 01/14/25 19:00 Pantoprazole Sodium (Protonix) 40 mg DAILY IV 01/14/25 19:00 01/14/25 20:27 Atorvastatin Calcium (Lipitor) 40 mg DAILY PO 01/14/25 19:00 01/14/25 20:29 Aspirin 81 mg DAILY PO 01/15/25 10:00 UNV Review of Systems A 14-point review of systems is negative unless otherwise noted above Vital Signs Vital Signs Date Time Temp Pulse Resp B/P (MAP) Pulse Ox O2 Delivery O2 Flow Rate FiO2 01/15/25 06:00 28 98 Nasal Cannula* 2 28 01/15/25 06:00 75 01/15/25 02:16 102/32 (55) 01/15/25 00:00 98.9 98.9 Physical Exam Heart: S1 and S2 regular. The patient is in sinus rhythm. Lungs: Clear to auscultation Abdomen: Benign. Extremities: Distal pulses palpable, 2+. No evidence for peripheral edema Labs/Diagnostic Data Labs Test 01/15/25 04:50 01/15/25 01:25 01/14/25 19:02 Range/Units White Blood Count 17.2 #H 4.4-10.8 10^3/uL Red Blood Count 4.77 4.5-5.90 10^6/uL Hemoglobin 14.4 13.5-17.5 g/dL Hematocrit 44.5 41.0-53.0 % Mean Corpuscular Volume 93.4 80.0-100.0 fL Mean Corpuscular Hemoglobin 30.2 28.0-32.0 pg Mean Corpuscular Hemoglobin Concent 32.4 32.0-36.0 g/dL Red Cell Distribution Width 15.6 H 11.8-14.3 % Platelet Count 146 140-450 10^3/uL Mean Platelet Volume 10.0 6.9-10.8 fL Neutrophils (%) (Auto) 80.1 H 37.0-80.0 % Lymphocytes (%) (Auto) 8.5 L 10.0-50.0 % Monocytes (%) (Auto) 10.7 0.0-12.0 % Eosinophils (%) (Auto) 0.1 0.0-7.0 % Basophils (%) (Auto) 0.6 0.0-2.0 % Neutrophils # (Auto) 13.8 H 1.6-8.6 10 ^3/uL Lymphocytes # (Auto) 1.5 0.4-5.4 10 ^3/uL Monocytes # (Auto) 1.8 H 0-1.3 10 ^3/uL Eosinophils # (Auto) 0 0-0.8 10 ^3/uL Basophils # (Auto) 0.1 0-0.2 10 ^3/uL Nucleated Red Blood Cells 0.0 % Sodium Level 141 136-145 mmol/L Potassium Level 4.3 3.5-5.1 mmol/L Chloride Level 108 H 98-107 mmol/L Carbon Dioxide Level 25 20-31 mmol/L Anion Gap 8 5-15 Blood Urea Nitrogen 13 9-23 mg/dL Creatinine 1.50 H 0.700-1.30 mg/dL Glomerular Filtration Rate Calc 45 >90 mL/min BUN/Creatinine Ratio 8.7 L 10.0-20.0 Serum Glucose 86 74-106 mg/dL Calcium Level 8.3 L 8.7-10.4 mg/dL Phosphorus Level 4.0 2.4-5.1 mg/dL Magnesium Level 1.8 1.6-2.6 mg/dL Total Bilirubin 1.3 H 0.2-1.0 mg/dL Aspartate Amino Transferase (AST) 124 H 13-40 U/L Alanine Aminotransferase (ALT) 16 7-40 U/L Alkaline Phosphatase 51 46-116 U/L Total Protein 6.0 5.7-8.2 g/dL Albumin 3.5 3.2-4.8 g/dL Prothrombin Time 11.2 9.3-11.8 sec Prothrombin Time INR 1.06 0.9-1.15 Activated Partial Thromboplast Time 53.2 H 24.5-34.5 SEC Troponin I High Sensitivity 86561 *H </=54 ng/L Plan/Recommendation ASSESSMENT: This is an 84-year old male who initially presented 01/14/2025 as NSTEMI transfer from [facility] to undergo ischemic workup by cardiac catheterization. Upon arrival at present facility initial 12-lead electrocardiogram had revealed sinus rhythm at 58bpm, RBBB, with no evidence for ST segment elevation. [place] [address], [place] [address], and [address] which the patient had subsequently initiated on Heparin infusion, statin, and aspirin therapy. LDL was found optimized at 43. Initial proBNP level had been found elevated at 627.18 which subsequent chest imaging had revealed no evidence for acute cardiopulmonary abnormalities. Throughout course of present admission patient underwent subsequent evaluation by interventional cardiology services which he underwent cardiac catheterization 01/15/2025 revealing INFORMATION TECHNOLOGY TECHNICIAN involving all [place] coronary arteries, patent SVG to LCX, touchdown lesion involving MURDOCK to LAD, failed SVG to rPDA with recommendation to pursue aggressive risk factor modification and medical management of LAD given patients advanced age and underlying comorbidities. At present denies any active chest pain, shortness of breath, palpitations, dizziness, syncope, orthopnea, paroxysmal nocturnal dyspnea, or any further cardiac related symptoms. Electrophysiology services were involved by primary team request for EP aspects of care Past medical history includes coronary artery disease status post previous 3-V CABG (03/07/2020), chronic diastolic heart failure, hypertension, hyperlipidemia, and GERD Cardiac Catheterization: (01/15/2025) FINDINGS: RCA: Moderate vessel off the right sinus of Valsalva, there is mid RCA INFORMATION TECHNOLOGY TECHNICIAN. LEFT MAIN: Moderate size left ma in, it bifurcates into LAD and circumflex. 70% distal LM stenosis. CIRCUMFLEX: Moderate caliber vessel coming off the left main .mid CX is INFORMATION TECHNOLOGY TECHNICIAN. LAD: LAD is a moderate caliber vessel coming of the left main. mid LAD is INFORMATION TECHNOLOGY TECHNICIAN. SVG to RPDA: atretic non functional 99% stenosised and diseased SVG to CX/ OM : patent MURDOCK to LAD: 95% touchdown lesion in LAD. CONCLUSIONS: 1. all [place] vessel INFORMATION TECHNOLOGY TECHNICIAN. 2. patent SVG to CX. 3. MURDOCK to LAD touchdown lesion. 4. failed SVG to rPDA. PLAN: Aggressive risk factor modification and medical management for the patient. DAPT. cont HF meds. anti anginal therapy. LAD PCI would be immensely risky given age and comorbidities NSTEMI, type II Coronary artery disease, s/p previous 3-V CABG (03/07/2020) Chronic diastolic heart failure, compensated Right bundle branch block Hyperlipidemia, LDL of 43 Hypertension, controlled Renal insufficiency Diabetes mellitus Leukocytosis Electrophysiology Suggestions for Management: Await requested 2-D Echocardiogram No warranted coronary revascularization as per [facility] 01/15/2025 To proceed with aggressive medical therapy and risk factor modification Proceed with DAPT (Aspirin 81mg daily + Plavix 75mg once daily) Recognizing current Plavix, recommend discontinuation of Protonix Entresto 24-26mg (1/2 tablet) twice daily Carvedilol 3.125mg twice daily Atorvastatin 40mg once daily Proceed with close rate and rhythm surveillance Proceed with close hemodynamic surveillance Proceed with optimized blood pressure control Transfuse to sustain HGB level above 7.0 Sustain Magnesium level greater than 2.0 Sustain Potassium level greater than 4.0 Follow up renal function and electrolytes Management of o co-morbidities as per primary team Management of leukocytosis as per primary team Management in telemetry Follow up consultant in ergonomics and safety recommendations Will proceed to follow from an EP perspective Further recommendations per clinical progression All available diagnostic labs, EKG's, and images were personally reviewed Patient's status, findings, and plan of care was reviewed and discussed with supervising physician Dr. Webster, who is in agreement with current plan of care. Plan of care discussed with and agreed upon by patient / primary RN Prognosis: Guarded Thank you for allowing me to participate in the care of this patient. Further recommendations based on patients clinical course and progression, primary attending, and other consultants. Will continue to follow with primary attending. If you have any questions or concerns, please do not hesitate to contact me. A total of 75 minutes was spent reviewing the patient record, examining the patient, making a diagnostic and therapeutic plan, discussing this plan with medical personnel, following up on diagnostic studies and following the patient for clinical stability excluding any and all procedures. At least 50% of this time was spent in direct, [id number] contact. Plan discussed with: Patient (patient and primary rn ) MATEO SOLIS Jan 15, 2025 07:17
[2025-01-15 07:51] LABS: Triglycerides 55 mg/dL (< 150)
[2025-01-15 07:53] LABS: Cholesterol 102 mg/dL (< 200); HDL Cholesterol 47 mg/dL (40-59)
[2025-01-15 08:01] LABS: INR 1.14 (0.9-1.15); Partial Thromboplastin Time 65.3 SEC (24.5-34.5); Prothrombin Time 11.9 sec (9.3-11.8)
--- NOTE | 2025-01-15 08:45 | CONS ---
Pharmacy Clinical Information: PTT 01/15 @ 0450 = 65.3 (THERAPEUTIC) NO BOLUS, NO CHANGE CONTINUE HEPARIN DRIP AT 700 UNITS/HR (7 ML/HR) NEXT PTT SCHEDULED FOR 01/15 @ 1100 PER RX PROTOCOL CONFIRMED WITH KATELYN MEZA [facility] RESIDENT Jan 15, 2025 08:45
--- NOTE | 2025-01-15 09:38 | DVHPN2 ---
Progress Note - Dictate Date Seen: Jan 15, 2025 Medical Necessity Reason Pt with a Central, PICC or Fol: No vital signs Vital Sign Date Time Temp Pulse Resp B/P (MAP) Pulse Ox O2 Delivery O2 Flow Rate FiO2 01/15/25 08:00 64 20 100 Nasal Cannula* 2 28 01/15/25 08:00 98.1 100/30 (53) 98.1 Total Intake and Output 01/14/25 01/14/25 01/15/25 14:59 22:59 06:59 Intake Total 21 ml 469 ml Output Total 150 ml Balance 21 ml 319 ml medications Current Medications Medications Dose Ordered Sig/[place]iber[place] Route Start Time Stop Time Status Last Admin Dose Admin Heparin Sodium/ Dextrose 250 ml @ 7 mls/hr Q24H IV 01/14/25 17:15 01/14/25 19:07 7 MLS/HR Sodium Chloride 1,000 ml @ 60 mls/hr [id number] IV 01/14/25 19:00 01/14/25 20:34 60 MLS/HR Acetaminophen/ Hydrocodone Bitart 1 tab Q4HP PRN PO 01/14/25 19:00 Temazepam 15 mg QHSP PRN PO 01/14/25 19:00 Ondansetron HCl 4 mg Q4HP PRN IV 01/14/25 19:00 Morphine Sulfate 2 mg Q4HPRN PRN IV 01/14/25 19:00 Nitroglycerin 0.4 mg Q5MINP PRN SL 01/14/25 19:00 Morphine Sulfate 2 mg Q30M PRN IV 01/14/25 19:00 Pantoprazole Sodium 40 mg DAILY IV 01/14/25 19:00 01/14/25 20:27 40 MG Atorvastatin Calcium 40 mg DAILY PO 01/14/25 19:00 01/14/25 20:29 40 MG Aspirin 81 mg DAILY PO 01/15/25 10:00 objective General Appearance: alert, no distress HEENT: EOMI, PERRLA, normal external inspect of ears, no icterus, no nasal drainage Neck: no carotid bruit, no jugular venous distention (JVD), no lymphadenopathy Chest: normal thorax Respiratory: clear to auscultation, normal air movement Cardiovascular: regular rate and rhythm, no diastolic murmur, no jugular venous distention (JVD), no rub, no systolic murmur Abdominal: soft, no hepatomegaly, no mass, no splenomegaly, no tenderness Musculoskeletal: no joint tenderness, no swelling Extremities: normal pulses, no calf tenderness, no clubbing, no cyanosis, no edema Skin: no bruising, no jaundice, no rash Neurological: alert, No focal deficit laboratory and microbiology Laboratory Tests 01/15/25 04:50 Test 01/15/25 04:50 Range/Units Serum Glucose 86 74-106 mg/dL Problem List Subjective Patient is awake and alert. Objective Patient denies any chest pain at this time. Patient was admitted to ICU. Patient was flown from [place] as an NSTEMI. Patient has a history of open heart surgery. Plan Dr. Madison to take patient to Chief Strategy Officer today. Continue heparin drip. Monitor EKG. Assessment/Plan - NSTEMI Cardiology consult, heparin drip, monitor EKG -Hyperlipidemia Medication, monitoring -DM type II with hyperglycemia Diet, insulin sliding scale, monitoring -CKD IIIb Medications, monitoring Plan discussed with: Patient, Other JIGAR RAMIREZ NP Jan 15, 2025 09:38
[2025-01-15] MEDS ORDERED: LATA0.008 EACHEYE (09:42)
[2025-01-15] MEDS ORDERED: CARV3.1240 PO (09:42)
[2025-01-15] MEDS ORDERED: SACU1TAB PO (09:42)
[2025-01-15] MEDS ORDERED: ASPI81CH49 PO (09:42)
[2025-01-15] MEDS ORDERED: ATOR-47 PO (09:42)
[2025-01-15] MEDS ORDERED: FURO20TA4 PO (09:42)
[2025-01-15] MEDS ORDERED: EMPA1TAB PO (09:42)
[2025-01-15] MEDS ORDERED: DEXTROSE (50%) 50ML SYRG IV PRN (09:45)
[2025-01-15] MEDS: InsuLIN REG 1unit/0.01ml Soln (100units/ml) SC SCH (11:30)
[2025-01-15] MEDS: LATANOPROST 0.005 % OPTH(EYE) SOL 2.5ML EACHEYE SCH (11:38)
[2025-01-15] MEDS: ACCU-CHEK COMFORT CURVE STRIP VI SCH (11:54)
[2025-01-15] MEDS: IODIXANOL 320MG/ML 100ML BTL IV ONE (12:34)
[2025-01-15 13:10] LABS: INR 1.14 (0.9-1.15); Prothrombin Time 11.9 sec (9.3-11.8)
[2025-01-15 13:14] LABS: Partial Thromboplastin Time 82.6 SEC (24.5-34.5)
--- NOTE | 2025-01-15 13:28 | CONS ---
Pharmacy Clinical Information: PTT 01/15 @ 1212 = 82.6 NO BOLUS, DECREASE TO 500 UNITS/HR NEXT PTT SCHEDULED FOR 01/15 @1900 PER RX PROTOCOL CONFIRMED WITH RN KATELYN ROCHE [facility] RESIDENT Jan 15, 2025 13:28
[2025-01-15] MEDS: HEPARIN DRIP/D5W 100UNITS/ML 250 ML IV SCH (13:45)
[2025-01-15] MEDS: BRIMONIDINE 0.2% OPTH Soln 5ml EACHEYE SCH (14:30)
[2025-01-15] MEDS: ANGIOMAX 250 MG VIAL IV ONE (14:37)
[2025-01-15] MEDS: SODIUM CHL 0.9% 0 ML ONE (14:37)
[2025-01-15] MEDS: VERAPAMIL 2.5MG/ML INJ 2ML VIAL IV ONE (14:37)
[2025-01-15] MEDS: fentaNYL CITRATE 100 MCG/2 ML VL ONE (14:37)
[2025-01-15] MEDS: MIDAZOLAM HCL 2MG/2ML 2ml VIAL (1mg/ml) ONE (14:37)
[2025-01-15] MEDS: LIDOCAINE 2%HCL (LOCAL ANESTH.) INJ 20ML MDV ONE (14:37)
[2025-01-15] MEDS: HEPARIN SODIUM (PORCINE) 5000 UNITS/ML 1ML VIAL ONE (14:38)
--- NOTE | 2025-01-15 15:12 | DVHINCON2 ---
Date of service: Jan 15, 2025 History of Present Illness 84 yo M with hx of cad s/p cabg (cath done 2020 here )< htn, HL admitted for nstemi and tx from [facility] to here . pt had trop elevation. echo is pending. pt is now chest pain free. he was dmitted to [facility]. Past Medical History reviewed Allergies: Coded Allergies: No Known Drug Allergy (Verified Allergy, Unknown, 02/23/20) Home Meds Reported Medications Empagliflozin (Jardiance) 10 Mg Tab, 1 TAB PO DAILY 01/15/25 Furosemide (Furosemide) 20 Mg Tab, TAB PO 01/15/25 Latanoprost (LATANOPROST) 0.005 % Yodit, EACHEYE 01/15/25 Sacubitril-Valsartan (Entresto 24-26 mg) 1 Tab Tab, 1 TAB PO BID 01/15/25 Aspirin (Aspirin) 81 Mg Chw, 1 TAB PO DAILY 01/15/25 Carvedilol (Carvedilol) 3.125 Mg Tab, 1 TAB PO BID 01/15/25 Atorvastatin Calcium (ATORVASTATIN CALCIUM) 80 Mg Tab, 1 TAB PO DAILY 01/15/25 Brimonidine Tartrate (Brimonidine Tartrate) 0.2 % Yodit, 1 DROP EACHEYE TID 02/23/20 Simvastatin (Simvastatin) 40 Mg Tab, 1 TAB PO HS 02/23/20 Losartan Potassium (Losartan Potassium) 25 Mg Tab, 1 TAB PO DAILY 02/23/20 Current Medications Current Medications Medications (Trade) Dose Ordered Sig/[place]iberty Route PRN Reason Start Time Stop Time Status Last Admin Heparin Sodium/ Dextrose 250 ml @ 7 mls/hr Q24H IV 01/14/25 17:15 01/15/25 13:40 DC 01/14/25 19:07 Sodium Chloride 1,000 ml @ 60 mls/hr [id number] IV 01/14/25 19:00 01/14/25 20:34 Acetaminophen/ Hydrocodone Bitart ([place] 5/325MG Tab) 1 tab Q4HP PRN PO MODERATE PAIN (4-6 PAIN SCALE) 01/14/25 19:00 Temazepam (Restoril) 15 mg QHSP PRN PO FOR INSOMNIA 01/14/25 19:00 Ondansetron HCl (Zofran) 4 mg Q4HP PRN IV NAUSEA / VOMITING 01/14/25 19:00 Morphine Sulfate 2 mg Q4HPRN PRN IV SEVERE PAIN (7-10 PAIN SCALE) 01/14/25 19:00 Nitroglycerin (Ntrostat Sublingual) 0.4 mg Q5MINP PRN SL FOR CHEST PAIN 01/14/25 19:00 Morphine Sulfate 2 mg Q30M PRN IV FOR CHEST PAIN 01/14/25 19:00 Pantoprazole Sodium (Protonix) 40 mg DAILY IV 01/14/25 19:00 01/15/25 10:22 Atorvastatin Calcium (Lipitor) 40 mg DAILY PO 01/14/25 19:00 01/15/25 10:22 Aspirin 81 mg DAILY PO 01/15/25 10:00 01/15/25 10:23 Brimonidine Tartrate (ALPHAGAN 0.2% OPT Soln) 1 drop BID EACHEYE 01/15/25 14:00 Carvedilol (Coreg Tablet) 3.125 mg BID PO 01/16/25 10:00 Empaglifozin (Jardiance) 10 mg DAILY PO 01/16/25 10:00 Latanoprost (Xalatan) 1 drop DAILY EACHEYE 01/15/25 10:00 01/15/25 11:38 Sacubitril/ Valsartan (Entresto 24-26 Mg tab) 1 tab BID PO 01/16/25 10:00 Diagnostic Test (Pha) (Accu-Chek Comfort Curve T) 1 strip ACHS 01/15/25 11:30 01/15/25 11:54 Insulin Human Regular (InsuLIN R) ACHS SC 01/15/25 11:30 Dextrose 50 ml UD PRN IV Blood Sugar LESS THAN 60 01/15/25 09:45 Heparin Sodium/ Dextrose 250 ml @ 5 mls/hr Q24H IV 01/15/25 13:45 Review of Systems 10 pt ros otherwise negative Vital Signs Vital Signs Date Time Temp Pulse Resp B/P (MAP) Pulse Ox O2 Delivery O2 Flow Rate FiO2 01/15/25 12:00 99.1 71 23 91/27 (48) 100 99.1 01/15/25 11:45 Nasal Cannula* 2 28 Physical Exam nad s1 s2 rrr ctab soft nt/nd no edema Labs/Diagnostic Data Labs Test 01/15/25 12:12 01/15/25 11:53 01/15/25 04:50 01/14/25 19:02 Range/Units Prothrombin Time 11.9 H 9.3-11.8 sec Prothrombin Time INR 1.14 0.9-1.15 Activated Partial Thromboplast Time 82.6 *H 24.5-34.5 SEC POC Glucose 73 70-106 mg/dl White Blood Count 17.2 #H 4.4-10.8 10^3/uL Red Blood Count 4.77 4.5-5.90 10^6/uL Hemoglobin 14.4 13.5-17.5 g/dL Hematocrit 44.5 41.0-53.0 % Mean Corpuscular Volume 93.4 80.0-100.0 fL Mean Corpuscular Hemoglobin 30.2 28.0-32.0 pg Mean Corpuscular Hemoglobin Concent 32.4 32.0-36.0 g/dL Red Cell Distribution Width 15.6 H 11.8-14.3 % Platelet Count 146 140-450 10^3/uL Mean Platelet Volume 10.0 6.9-10.8 fL Neutrophils (%) (Auto) 80.1 H 37.0-80.0 % Lymphocytes (%) (Auto) 8.5 L 10.0-50.0 % Monocytes (%) (Auto) 10.7 0.0-12.0 % Eosinophils (%) (Auto) 0.1 0.0-7.0 % Basophils (%) (Auto) 0.6 0.0-2.0 % Neutrophils # (Auto) 13.8 H 1.6-8.6 10 ^3/uL Lymphocytes # (Auto) 1.5 0.4-5.4 10 ^3/uL Monocytes # (Auto) 1.8 H 0-1.3 10 ^3/uL Eosinophils # (Auto) 0 0-0.8 10 ^3/uL Basophils # (Auto) 0.1 0-0.2 10 ^3/uL Nucleated Red Blood Cells 0.0 % Sodium Level 141 136-145 mmol/L Potassium Level 4.3 3.5-5.1 mmol/L Chloride Level 108 H 98-107 mmol/L Carbon Dioxide Level 25 20-31 mmol/L Anion Gap 8 5-15 Blood Urea Nitrogen 13 9-23 mg/dL Creatinine 1.50 H 0.700-1.30 mg/dL Glomerular Filtration Rate Calc 45 >90 mL/min BUN/Creatinine Ratio 8.7 L 10.0-20.0 Serum Glucose 86 74-106 mg/dL Calcium Level 8.3 L 8.7-10.4 mg/dL Phosphorus Level 4.0 2.4-5.1 mg/dL Magnesium Level 1.8 1.6-2.6 mg/dL Total Bilirubin 1.3 H 0.2-1.0 mg/dL Aspartate Amino Transferase (AST) 124 H 13-40 U/L Alanine Aminotransferase (ALT) 16 7-40 U/L Alkaline Phosphatase 51 46-116 U/L B-Type Natriuretic Peptide 627.18 0-100 pg/mL Total Protein 6.0 5.7-8.2 g/dL Albumin 3.5 3.2-4.8 g/dL Triglycerides Level 55 < 150 mg/dL Cholesterol Level 102 < 200 mg/dL LDL Cholesterol 43 < 100 mg/dL HDL Cholesterol 47 40-59 mg/dL Troponin I High Sensitivity 14013 *H </=54 ng/L Microbiology Date/Time Source Procedure Growth Status 01/14/25 23:26 Nose MRSA Screen - Final Complete Assessment ACS HTN HL cad cabg Plan/Recommendation agree with primary cardiac service reviewed previous cath films independently recommend [facility] for eval of bypass cont heparin gtt asa statin fu echo report Plan discussed with: Patient HERVE CAED MD Jan 15, 2025 15:12
--- NOTE | 2025-01-15 15:15 | DVHOP2 ---
Operative Report Operative Report CARDIAC ELECTRIC SOLDERER PROCEDURE REPORT [place], [place] Date of Service: 01/15/25 Mysql Database Administrator: Herve Cade MD PROCEDURES PERFORMED: Coronary angiogram, left heart catheterization, conscious sedation administration and supervision, less than 15 minutes; fluoroscopy use and interpretation. US guided vascular access, MURDOCK angiography, bypass graft angiography PREOPERATIVE DIAGNOSES: NSTEMI POSTOP DIAGNOSIS: NSTEMI DESCRIPTION OF PROCEDURE: The patient or appropriate family signed informed consent understanding the risks, benefits and alternatives of the procedure, they wished to proceed. The patient was brought to the cardiac cleaner laboratory equipment in n.p.o. state. The patient was prepped in a sterile fashion. Sedation was used per cardiac cath protocol. I administered 2 mL of 2% lidocaine to the rLEFT wrist. I used US guidance saved to pacs system. With an antegrade front wall puncture. I cannulated the left radial artery and placed a 6-[place] Glidesheath slender. Next, an intra-arterial spasmolytic was administered. Next, a - 6F JR4 and JL and were used for coronary angiogram and LVEDP measurement and pressure pullback. At the completion of procedure, all guides and wires were removed, and there were no immediate complications. FINDINGS: RCA: Moderate vessel off the right sinus of Valsalva, there is mid RCA FLIGHT CREW ORDNANCEMAN LEFT MAIN: Moderate size left main, it bifurcates into LAD and circumflex. 70% distal LM stenosis CIRCUMFLEX: Moderate caliber vessel coming off the left main .mid CX is FLIGHT CREW ORDNANCEMAN LAD: LAD is a moderate caliber vessel coming of the left main. mid LAD is FLIGHT CREW ORDNANCEMAN SVG to RPDA: atretic non functional 99% stenosised and diseased SVG to CX/ OM : patent MURDOCK to LAD: 95% touchdown lesion in LAD CONCLUSIONS: 1. all [place] vessel FLIGHT CREW ORDNANCEMAN 2. patent SVG to CX 3. MURDOCK to LAD touchdown lesion 4. failed SVG to rPDA PLAN: Aggressive risk factor modification and medical management for the patient. DAPT cont HF meds anti anginal therapy LAD PCI would be immensely risky given age and comorbidities HERVE CADE MD Jan 15, 2025 15:15
[2025-01-15] MEDS: CLOPIDOGREL BISULFATE 75 MG TAB PO ONE (16:22)
[2025-01-15] MEDS ORDERED: ALBU2TAB11 INH (17:11)
[2025-01-15] MEDS ORDERED: ALBU108A5 IN (17:15)
[2025-01-15 20:03] LABS: INR 1.14 (0.9-1.15); Partial Thromboplastin Time 34.7 SEC (24.5-34.5); Prothrombin Time 11.9 sec (9.3-11.8)
[2025-01-15] MEDS: SODIUM CHLORIDE 0.9% 500 ML IV ONE (21:03)
[2025-01-16] VITALS (40 sets, daily range): BP systolic 94–132; BP diastolic 26–68; PULSE 68–91; RESP 13–30; TEMP 98.5–99.1; O2SAT 100
[2025-01-16 06:25] LABS: Hematocrit 41.2 % (41.0-53.0); Hemoglobin 13.4 g/dL (13.5-17.5); Mean Corpuscular Hemoglobin 30.3 pg (28.0-32.0); Mean Corpuscular Volume 93.5 fL (80.0-100.0); Nucleated Red Blood Cells % 0.1 %
[2025-01-16] MEDS: SACUBITRIL-VALSARTAN 24mg/26mg TAB PO SCH (08:32)
[2025-01-16] MEDS: CLOPIDOGREL BISULFATE 75 MG TAB PO SCH (08:32)
[2025-01-16] MEDS: EMPAGLIFLOZIN 10 MG TAB PO SCH (08:32)
--- NOTE | 2025-01-16 09:39 | DVHPN2 ---
Progress Note - Dictate Date Seen: Jan 16, 2025 Medical Necessity Reason Pt with a Central, PICC or Fol: No vital signs Vital Sign Date Time Temp Pulse Resp B/P (MAP) Pulse Ox O2 Delivery O2 Flow Rate FiO2 01/16/25 08:30 70 26 100 01/16/25 08:30 Nasal Cannula* 2 28 01/16/25 04:00 98.8 98.8 Total Intake and Output 01/15/25 01/15/25 01/16/25 15:00 23:00 07:00 Intake Total 527 ml 1100 ml 540 ml Output Total 400 ml 250 ml Balance 527 ml 700 ml 290 ml medications Current Medications Medications Dose Ordered Sig/[place] Route Start Time Stop Time Status Last Admin Dose Admin Sodium Chloride 1,000 ml @ 60 mls/hr [id number] IV 01/14/25 19:00 01/16/25 06:01 60 MLS/HR Acetaminophen/ Hydrocodone Bitart 1 tab Q4HP PRN PO 01/14/25 19:00 Temazepam 15 mg QHSP PRN PO 01/14/25 19:00 Ondansetron HCl 4 mg Q4HP PRN IV 01/14/25 19:00 Morphine Sulfate 2 mg Q4HPRN PRN IV 01/14/25 19:00 Nitroglycerin 0.4 mg Q5MINP PRN SL 01/14/25 19:00 Morphine Sulfate 2 mg Q30M PRN IV 01/14/25 19:00 Pantoprazole Sodium 40 mg DAILY IV 01/14/25 19:00 01/16/25 08:31 40 MG Atorvastatin Calcium 40 mg DAILY PO 01/14/25 19:00 01/16/25 08:33 40 MG Aspirin 81 mg DAILY PO 01/15/25 10:00 01/16/25 08:33 81 MG Brimonidine Tartrate 1 drop BID EACHEYE 01/15/25 14:00 01/16/25 08:33 1 DROP Carvedilol 3.125 mg BID PO 01/16/25 10:00 Empaglifozin 10 mg DAILY PO 01/16/25 10:00 01/16/25 08:32 10 MG Latanoprost 1 drop DAILY EACHEYE 01/15/25 10:00 01/16/25 08:33 1 DROP Sacubitril/ Valsartan 1 tab BID PO 01/16/25 10:00 01/16/25 08:32 1 TAB Diagnostic Test (Pha) 1 strip ACHS 01/15/25 11:30 01/16/25 06:01 1 STRIP Insulin Human Regular ACHS SC 01/15/25 11:30 Dextrose 50 ml UD PRN IV 01/15/25 09:45 Clopidogrel Bisulfate 75 mg DAILY PO 01/16/25 10:00 01/16/25 08:32 75 MG laboratory and microbiology Laboratory Tests 01/16/25 04:51 01/15/25 04:50 Test 01/15/25 04:50 Range/Units Serum Glucose 86 74-106 mg/dL Assessment/Plan ASSESSMENT: This is an 84-year old male who initially presented 01/14/2025 as NSTEMI transfer from [facility] to undergo ischemic workup by cardiac catheterization. Upon arrival at present facility initial 12-lead electrocardiogram had revealed sinus rhythm at 58bpm, RBBB, with no evidence for ST segment elevation. [place] [address], [place] [address], and [address] which the patient had subsequently initiated on Heparin infusion, statin, and aspirin therapy. LDL was found optimized at 43. Initial proBNP level had been found elevated at 627.18 which subsequent chest imaging had revealed no evidence for acute cardiopulmonary abnormalities. Throughout course of present admission patient underwent subsequent evaluation by interventional cardiology services which he underwent cardiac catheterization 01/15/2025 revealing RESOURCING CONSULTANT involving all [place] coronary arteries, patent SVG to LCX, touchdown lesion involving MURDOCK to LAD, failed SVG to rPDA with recommendation to pursue aggressive risk factor modification and medical management of LAD given patients advanced age and underlying comorbidities. At present denies any active chest pain, shortness of breath, palpitations, dizziness, syncope, orthopnea, paroxysmal nocturnal dyspnea, or any further cardiac related symptoms. Electrophysiology services were involved by primary team request for EP aspects of care Past medical history includes coronary artery disease status post previous 3-V CABG (03/07/2020), chronic diastolic heart failure, hypertension, hyperlipidemia, and GERD Echocardiogram: (01/15/2025) Left ventricle: Concentric left ventricular hypertrophy was seen. LVEF was 50%. Inferior hypokinesia is considered. Right ventricle is mildly enlarged with normal systolic function. Mild biatrial dilatation is seen. Aortic valve is trileaflet. Does have calcified cusps with reduced opening. Up to moderate Aortic Stensis is considered (Peak/mean gradient across Aortic valve was 29/18 mmHg). Moderate Aortic Insufficiency is observed. Mitral valve revealed mild to moderate Mitral regurgitation. Mild Tricuspid regurgitation was seen. There mild pulmonary valve insufficiency. Right ventricular systolic pressure was assessed at 30 mmHg. There was no pericardial effusion. Cardiac Catheterization: (01/15/2025) FINDINGS: RCA: Moderate vessel off the right sinus of Valsalva, there is mid RCA RESOURCING CONSULTANT. LEFT MAIN: Moderate size left main, it bifurcates into LAD and circumflex. 70% distal LM stenosis. CIRCUMFLEX: Moderate caliber vessel coming off the left main .mid CX is RESOURCING CONSULTANT. LAD: LAD is a moderate caliber vessel coming of the left main. mid LAD is RESOURCING CONSULTANT. SVG to RPDA: atretic non functional 99% stenosised and diseased SVG to CX/ OM : patent MURDOCK to LAD: 95% touchdown lesion in LAD. CONCLUSIONS: 1. all [place] vessel RESOURCING CONSULTANT. 2. patent SVG to CX. 3. MURDOCK to LAD touchdown lesion. 4. failed SVG to rPDA. PLAN: Aggressive risk factor modification and medical management for the patient. DAPT. cont HF meds. anti anginal therapy. LAD PCI would be immensely risky given age and comorbidities NSTEMI, type II Coronary artery disease, s/p previous 3-V CABG (03/07/2020) Chronic diastolic heart failure, compensated Valvular heart disease, moderate /AI Right bundle branch block Hyperlipidemia, LDL of 43 Hypertension, controlled Renal insufficiency Diabetes mellitus Leukocytosis Electrophysiology Suggestions for Management: No warranted coronary revascularization as per [facility] 01/15/2025 To proceed with aggressive medical therapy and risk factor modification Proceed with DAPT (Aspirin 81mg daily + Plavix 75mg once daily) Recognizing current Plavix, recommend discontinuation of Protonix Entresto 24-26mg (1/2 tablet) twice daily Carvedilol 3.125mg twice daily Atorvastatin 40mg once daily Regular surveillance of underlying /AI by TTE can be justified given asymptomatic nature If becomes symptomatic, can consider outpatient [facility]NOR for further observation Proceed with close rate and rhythm surveillance Proceed with close hemodynamic surveillance Proceed with optimized blood pressure control Transfuse to sustain HGB level above 7.0 Sustain Magnesium level greater than 2.0 Sustain Potassium level greater than 4.0 Follow up renal function and electrolytes Management of o co-morbidities as per primary team Management of leukocytosis as per primary team Management in telemetry Follow up residential property consultant recommendations Will proceed to follow from an EP perspective Further recommendations per clinical progression All available diagnostic labs, EKG's, and images were personally reviewed Patient's status, findings, and plan of care was reviewed and discussed with supervising physician Dr. Webster, who is in agreement with current plan of care. Plan of care discussed with and agreed upon by patient / primary RN Prognosis: Guarded Thank you for allowing me to participate in the care of this patient. Further recommendations based on patients clinical course and progression, primary attending, and other consultants. Will continue to follow with primary attending. If you have any questions or concerns, please do not hesitate to contact me. A total of 75 minutes was spent reviewing the patient record, examining the patient, making a diagnostic and therapeutic plan, discussing this plan with medical personnel, following up on diagnostic studies and following the patient for clinical stability excluding any and all procedures. At least 50% of this time was spent in direct, [id number] contact. Dietary Evaluation Review Comments: Nutrition recommendation 1) Consider Ensure high protein 240ml TID if PO intake <50% 2) Liberalize diet to 2gm Na + no caffeine diet 3) Monitor PO intake, lab values, weight trend, and I/O Expected Outcomes/Goals: To meet >75% estimated needs Lab values to improve Fu 3-5 days Plan discussed with: Patient (patient and primary rn ) MATEO SOLIS Jan 16, 2025 09:39
[2025-01-16] MEDS: CARVEDILOL 3.125 MG TAB PO SCH (10:00)
--- NOTE | 2025-01-16 10:37 | DVHSR ---
APPROVED REPORT EXAM: Two-dimensional and M-mode echocardiogram with Doppler and color Doppler. Blood Pressure: 102/32 mmHg INDICATION ACS Surgery/Intervention CABG: RISK FACTORS Height: 4'11", Weight: 121 DIMENSIONS LVDd4.7 (3.8-5.7cm)LA (2D)3.7 (1.9-4.0cm)Aortic Root2.8 (2.0-3.7cm) LVDs3.5 (2.5-4.0cm)LA (MM) (1.9-4.0cm)Aortic Cusp Exc0.6 (1.5-2.0cm) EF (%) 50.0 (55-70%)Rt. Atrium4.2 (1.9-4.0cm)Asc. Aorta cm IVSd0.9 (0.7-1.1cm)RV (D) (1.8-2.4cm) Mitral Valve MitralMitral Stenosis E wave1.03m/sMV Mean GR.mmHg A wave0.89m/sMV Peak GR.mmHg E/A ratio1.22D MVAcm2 DECEL [id number] 1/2 Timems Aortic Valve Aortic ValveAortic Stenosis V10.72m/Ivon Mean GR.16mmHg V22.63m/Ivon Peak GR.28mmHg LVOT Diameter1.9 (1.8-2.4cm)Doppler AVA0.78cm2 AI P 1/2 Vhni874.30ms Tricuspid Valve TR Velocity2.30m/s [id number] Other Information Quality : Technically LimitedRhythm : Technically limited study due to body habitus, cabg and breathing pattern. Conclusion Left ventricle: Concentric left ventricular hypertrophy was seen. LVEF was 50%. Inferior hypokinesia is considered. Right ventricle is mildly enlarged with normal systolic function. Mild biatrial dilatation is seen. Aortic valve is trileaflet. Does have calcified cusps with reduced opening. Up to moderate Aortic [place] nsis is considered (Peak/mean gradient across Aortic valve was 29/18 mmHg). Moderate Aortic Insuffici ency is observed. Mitral valve revealed mild to moderate Mitral regurgitation. Mild Tricuspid regurgitation was seen. T here mild pulmonary valve insufficiency Right ventricular systolic pressure was assessed at 30 mmHg. There was no pericardial effusion.
[2025-01-16] MEDS ORDERED: CLOP75TA70 PO (12:34)
[2025-01-16] MEDS ORDERED: PANT40TA2 PO (12:34)
[2025-01-16] MEDS ORDERED: FAMO20TA10 PO (12:37)
--- NOTE | 2025-01-16 13:07 | DVHDS2 ---
Discharge Summary Date of Admission Jan 14, 2025 at 18:52 Date of Discharge: Jan 16, 2025 Labs/Diagnostic Data: Laboratory Results Test 01/16/25 11:28 01/16/25 04:51 01/15/25 19:13 01/15/25 04:50 POC Glucose 148 mg/dl (70-106) White Blood Count 14.3 10^3/uL (4.4-10.8) Red Blood Count 4.41 10^6/uL (4.5-5.90) Hemoglobin 13.4 g/dL (13.5-17.5) Hematocrit 41.2 % (41.0-53.0) Mean Corpuscular Volume 93.5 fL (80.0-100.0) Mean Corpuscular Hemoglobin 30.3 pg (28.0-32.0) Mean Corpuscular Hemoglobin Concent 32.4 g/dL (32.0-36.0) Red Cell Distribution Width 15.8 % (11.8-14.3) Platelet Count 123 10^3/uL (140-450) Mean Platelet Volume 10.3 fL (6.9-10.8) Neutrophils (%) (Auto) 75.7 % (37.0-80.0) Lymphocytes (%) (Auto) 9.3 % (10.0-50.0) Monocytes (%) (Auto) 14.1 % (0.0-12.0) Eosinophils (%) (Auto) 0.5 % (0.0-7.0) Basophils (%) (Auto) 0.4 % (0.0-2.0) Neutrophils # (Auto) 10.8 10 ^3/uL (1.6-8.6) Lymphocytes # (Auto) 1.3 10 ^3/uL (0.4-5.4) Monocytes # (Auto) 2.0 10 ^3/uL (0-1.3) Eosinophils # (Auto) 0.1 10 ^3/uL (0-0.8) Basophils # (Auto) 0.1 10 ^3/uL (0-0.2) Nucleated Red Blood Cells 0.1 % Prothrombin Time 11.9 sec (9.3-11.8) Prothrombin Time INR 1.14 (0.9-1.15) Activated Partial Thromboplast Time 34.7 SEC (24.5-34.5) Sodium Level 141 mmol/L (136-145) Potassium Level 4.3 mmol/L (3.5-5.1) Chloride Level 108 mmol/L (98-107) Carbon Dioxide Level 25 mmol/L (20-31) Anion Gap 8 (5-15) Blood Urea Nitrogen 13 mg/dL (9-23) Creatinine 1.50 mg/dL (0.700-1.30) Glomerular Filtration Rate Calc 45 mL/min (>90) BUN/Creatinine Ratio 8.7 (10.0-20.0) Serum Glucose 86 mg/dL (74-106) Calcium Level 8.3 mg/dL (8.7-10.4) Phosphorus Level 4.0 mg/dL (2.4-5.1) Magnesium Level 1.8 mg/dL (1.6-2.6) Total Bilirubin 1.3 mg/dL (0.2-1.0) Aspartate Amino Transferase (AST) 124 U/L (13-40) Alanine Aminotransferase (ALT) 16 U/L (7-40) Alkaline Phosphatase 51 U/L (46-116) B-Type Natriuretic Peptide 627.18 pg/mL (0-100) Total Protein 6.0 g/dL (5.7-8.2) Albumin 3.5 g/dL (3.2-4.8) Triglycerides Level 55 mg/dL (< 150) Cholesterol Level 102 mg/dL (< 200) LDL Cholesterol 43 mg/dL (< 100) HDL Cholesterol 47 mg/dL (40-59) Test 01/14/25 19:02 Troponin I High Sensitivity 57648 ng/L (</=54) Other Laboratory Tests 01/16/25 04:51 01/15/25 04:50 Brief Hx & Hospital Course: 84 year old male brought in from [facility] is brought in for chest pain and NSTEMI. Patient states chest pain started at 2100. He was found to have elevated troponin levels at [facility] and was transferred for higher level of care. Patient was admitted on January 14, 2025, as a transfer from [facility]. He was flown in due to unstable angina and chest pain. Patient was transferred by his engagement liaison, Dr. Webster, and evaluated by Dr. Madison. A heart cath was performed after admission to the ICU, where the patient was placed on a heparin drip. The next day he was taken to the [facility]; coronaries were found to be clear. Patient will be discharged home on aspirin and Plavix. Entresto dose will be adjusted by Cardiology. He was informed to take stool softeners as needed for constipation. Patient will follow up with Cardiology in 1 week. There were no complaints or new complaints upon discharge, all questions and concerns were answered. Patient was advised to return to the ER or call 911 if any headaches, dizziness, shortness of breath, chest pain, bleeding, fevers, or worsening of medical condition. Patient/Family was counseled about treatment plan, medications, possible side effects, patientverbalized understanding. All questions were answered to the best of my ability. The patient symptoms improved and they are okay to be DC. 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 Discharge Disposition: Home Discharge Instruct/Medications Diet: Cardiac 2g Na,low cholest Activity: No Restrictions, As Tolerated Follow Up/Referral: pcp 1 week Cardiolog 1 week Asa Plavix pepcid Scheduled Albuterol Sulfate (Albuterol Sulfate Hfa), 80 MCG IN PRN, (Reported) Aspirin (Aspirin), 1 TAB PO DAILY, (Reported) Atorvastatin Calcium (Atorvastatin Calcium), 1 TAB PO DAILY, (Reported) Brimonidine Tartrate (Brimonidine Tartrate), 1 DROP EACHEYE TID, (Reported) Carvedilol (Carvedilol), 1 TAB PO BID, (Reported) Clopidogrel Bisulfate (Clopidogrel), 75 MG PO DAILY Empagliflozin (Jardiance), 1 TAB PO DAILY, (Reported) Famotidine (Pepcid Tablet), 1 TAB PO BID Losartan Potassium (Losartan Potassium), 1 TAB PO DAILY, (Reported) Sacubitril-Valsartan (Entresto 24-26 mg), 1 TAB PO BID, (Reported) Simvastatin (Simvastatin), 1 TAB PO HS, (Reported) Miscellaneous Medications Furosemide (Furosemide), TAB PO, (Reported) Latanoprost (Latanoprost), EACHEYE, (Reported) Discontinued Medications Albuterol Sulfate (Albuterol Sulfate), 90 MCG INH for SHORTNESS OF BREATH, (Reported) Discontinued Reason: Prescription changed Discharge Statement: "Patient was advised to return to the ER or call 911 if any headaches, dizziness, shortness of breath, chest pain, abdominal pain, bleeding, fevers, or worsening of medical condition. Patient was counseled about treatment plan, medications, possible side effects, patientverbalized understanding. All questions were answered to the best of my ability. This discharge took greater then 30 minutes in planning, reviewing documentation, counseling the patient, and discussing with other team members." ASSESSMENT ASSESSMENT Assessment CAD, Nstemi, s/p heart cath JIGAR RAMIREZ NP Jan 16, 2025 13:07
--- NOTE | 2025-01-16 14:41 | DVH ---
Exam: XY KUB ABDOMEN SINGLE VIEW Indication: abd pain Comparison: None Technique: 1 radiographic views of the abdomen. Findings: Nonspecific bowel-gas pattern. Moderate volume colonic stool. There is no definite evidence for pneumoperitoneum. No abnormal calcifications noted. Impression: Nonspecific bowel-gas pattern. Moderate volume colonic stool.
== END 2025-01-16 20:11 | disposition home or self-care (01) | DRG 281 ==
LOC: ER 15:26 → EDBD 15:26 → OVERFLOW 18:52 → ICU CENTRL 23:17
PROVIDERS: ADMIT Nurse Practitioner; ATTEND Nurse Practitioner
PROC: 4A023N7 Measurement of Cardiac Sampling and Pressure, Left Heart, Percutaneous Approach (ICD-10-PCS; principal; 2025-01-15)
PROC: B211YZZ Fluoroscopy of Multiple Coronary Arteries using Other Contrast (ICD-10-PCS; 2025-01-15)
PROC: B218YZZ Fluoroscopy of Left Internal Mammary Bypass Graft using Other Contrast (ICD-10-PCS; 2025-01-15)
PROC: B213YZZ Fluoroscopy of Multiple Coronary Artery Bypass Grafts using Other Contrast (ICD-10-PCS; 2025-01-15)
DX: I25.10 Atherosclerotic heart disease of native coronary artery without angina pectoris (principal); I13.0 Hypertensive heart and chronic kidney disease with heart failure and stage 1 through stage 4 chronic kidney disease, or unspecified chronic kidney disease; I21.A1 Myocardial infarction type 2; I50.32 Chronic diastolic (congestive) heart failure; R65.10 Systemic inflammatory response syndrome (SIRS) of non-infectious origin without acute organ dysfunction; E78.5 Hyperlipidemia, unspecified; E11.65 Type 2 diabetes mellitus with hyperglycemia; E11.22 Type 2 diabetes mellitus with diabetic chronic kidney disease; N18.32 Chronic kidney disease, stage 3b; K21.9 Gastro-esophageal reflux disease without esophagitis; I45.10 Unspecified right bundle-branch block; D72.829 Elevated white blood cell count, unspecified; I37.1 Nonrheumatic pulmonary valve insufficiency; Z95.1 Presence of aortocoronary bypass graft; I08.0 Rheumatic disorders of both mitral and aortic valves
CPT/HCPCS: 36415; 71045; 74018; 80048; 80053; 80061; 82962; 83735; 83880; 84100; 84484; 85025; 85610; 85730; 86850; 86900; 86901; 87081; 93005; 93306; 93459; 96365; 96375; 99152; 99291; G0378; J2250; J2470; Q9967